=== PATIENT | male | born 1980 | race Caucasian/White ===

== ENCOUNTER 2021-05-29 14:13 | Outpatient (CLI) | payer OTHER, SELFPAY ==
[2021-06-02 12:08] LABS: Endomysial Antibody IgA Negative (Negative)
[2021-06-02 17:02] LABS: Immunoglobulin A 362 mg/dL (90-386); t-Transglutaminase IgA <2 U/mL (0-3)
== END 2021-05-29 23:59 | disposition home or self-care (01) ==
LOC: MTLAB 14:20
PROVIDERS: Referring Provider Internal Medicine Gastroenterology; Visit Provider Internal Medicine Gastroenterology
DX: R19.7 Diarrhea, unspecified (principal)
CPT/HCPCS: 36415; 82784; 83516; 86255